=== PATIENT | male | born 1945 | race Caucasian/White ===

== ENCOUNTER 2018-01-01 13:35 | Observation (INO) | payer OTHER ==
[2018-01-01] MEDS ORDERED: ASPIRIN 81 MG CHEWABLE TAB PO ONE (13:50)
[2018-01-01] MEDS ORDERED: NS 500 ML IV ONE (13:50)
--- NOTE | 2018-01-01 13:50 | CPEKG ---
Heart Rate: 74 RR Interval: 811 P-R Interval: 156 QRSD Interval: 82 QT Interval: 388 QTC Interval: 431 P Glidden: 42 QRS Glidden: 63 T Wave Glidden: 16 EKG Severity - NORMAL ECG - EKG Impression: SINUS RHYTHM Electronically Signed By: Alex Cherry 01-Jan-2018 14:48:00
[2018-01-01 14:02] LABS: PLATELET COUNT 209 10^3/uL (150-400)
[2018-01-01 14:13] LABS: INR 1.09 (0.83-1.16); PROTIME(PATIENT) 14.3 SEC (12.0-15.0)
--- NOTE | 2018-01-01 14:14 | EDPHY ---
H & P Time Seen by Provider: 01/01/18 13:50 HPI/ROS: HPI Palpitations. 72-year-old male by private vehicle with his . This patient has a history of atrial fibrillation. He had ablation performed by Dr. Ruby in 2015 and 2012. The patient reports that he was exercising at the gym between 10:30 a.m. And 11:30 a.m.. He was doing a circuit training workout. He reports sudden onset of palpitations. He has an application on his iPad with 2 leads that he puts his fingers on, he did tracings while having these palpitations. They indicate a narrow complex sinus tachycardia with a rate of 150 as well as a regular wide complex tachycardia with a rate of 150 and irregular narrow complex tachycardia. He states the palpitations lasted for about 2 hr and resolved when he came to the emergency department. No associated chest pain. Denies any shortness of breath. States that during the palpitations he did try to continue his work out and felt lightheaded. He reports his volleyball player is Dr. Smiley Jacques. He has been on metoprolol but over the last week to 2 weeks he has been transitioned off of metoprolol and onto diltiazem under her direction. ROS: Constitutional: No fever, no chills. No weakness. Eyes: No discharge. No changes in vision. ENT: No sore throat. No nasal congestion or rhinorrhea. Respiratory: No cough. No shortness of breath. Cardiac: No chest pain, as above. Gastrointestinal: No abdominal pain, no vomiting, no diarrhea. Genitourinary: No hematuria. No dysuria or increased frequency with urination. Musculoskeletal: No back pain. No neck pain. No myalgias or arthralgias. Skin: No rashes. Neurological: No headache. No focal weakness or altered sensation. Past medical history: Atrial fibrillation with history of ablation x2. As above. Social history: Nonsmoker. Here with his . Social alcohol. Physical Exam: General Appearance: Alert, no distress. This patient is responding to questions appropriately and in full sentences. This patient appears well- hydrated and well-nourished. Eyes: Pupils equal and round no pallor or injection. No lid edema, erythema or injection. Respiratory: There are no retractions, lungs are clear to auscultation with good air movement bilaterally. Cardiovascular: Regular rate and rhythm. No murmur. Gastrointestinal: Abdomen is soft and nontender, no masses, bowel sounds normal. No focal tenderness at McBurney's point. No Lundberg sign. Neurological: Motor sensory function is grossly intact. Cranial nerves are normal. Gait is normal. Skin: Warm and dry, no rashes. Musculoskeletal: Neck is supple and nontender. Extremities are symmetrical. All joints range without pain or impingement. Psychiatric: No agitation. No depression. Database: EKG: EKG time is 1:48 p.m.; EKG shows a narrow complex normal sinus rhythm with a ventricular rate of 74. The FL, QRS, QT intervals are within normal limits. There are no ST-T wave changes indicative of ischemic or injury pattern. No evidence of right heart strain. No evidence of WPW, Brugada syndrome, hypertrophic cardiomyopathy. Interpreted by me. Imaging: Chest x-ray AP portable; the cardiac mediastinal silhouette is unremarkable. No evidence of infiltrate or pneumothorax. No acute cardiopulmonary disease process noted. Interpreted by me. Procedures: Emergency department course: IV placed. He was placed on a monitor. Vital signs reviewed and are normal. On my initial evaluation, heart rate 76, normal sinus rhythm narrow complex on the monitor. Borderline febrile. Vital signs otherwise unremarkable. EKG obtained and reviewed by myself. 2:50 p.m., patient re-evaluated. Resting comfortably at this time. He remains asymptomatic. He has a narrow complex sinus rhythm on the monitor with ventricular rate of 68. Blood pressure is normal. I discussed the results of his emergency department workup with him and his . I discussed admitting him to telemetry for further observation and management as well as cardiology consultation. He endorses this plan. 2:55 p.m., spoke with on-call hospitalist. Case discussed in detail with him. He accepts the patient for admission. 3:00 p.m., spoke with on-call volleyball player, Dr. Brock Aguero. Case discussed with him. He or 1 of his partners will consult on this patient in the morning. The patient's remaining emergency department has been uneventful. He was admitted to telemetry in stable and improved condition. Differential Diagnosis: The differential diagnosis on this patient includes but is not limited to atrial fibrillation, atrial flutter, other SVT, ventricular tachycardia. This represents a partial list of diagnoses considered. These considerations are based on history, physical exam, past history, reassessment and diagnostic testing. Smoking Status: Former smoker Constitutional: Initial Vital Signs Temperature (C) 36.7 C 01/01/18 13:43 Heart Rate 81 01/01/18 13:43 Respiratory Rate 18 01/01/18 13:43 Blood Pressure 119/76 01/01/18 13:43 O2 Sat (%) 95 01/01/18 13:43 O2 Delivery Mode Room Air Allergies/Adverse Reactions: coffee Allergy (Uncoded 05/25/13 08:41) Other-Enter Comments kobi Allergy (Uncoded 05/25/13 08:41) Home Medications: Medication Instructions Recorded Albuterol [Proventil Inhaler HFA 1 - 2 puffs PO Q4 PRN 02/23/16 (*)] Apixaban [Eliquis] 5 mg PO BID 02/23/16 Atorvastatin Calcium [Lipitor 40 40 mg PO HS 01/01/18 mg (*)] Beclomethasone Qvar 80 [Qvar 80 2 inh IH BID 01/01/18 Redihaler (*)] Diltiazem HCl [Diltiazem ER] 120 mg PO DAILY 01/01/18 Glucosamine Sulfate [Glucosamine 500 mg PO DAILY 01/01/18 Sulfate 500 MG (*)] Herbals/Supplements -Info Only 1 ea PO DAILY 01/01/18 Multivitamins [Multivitamin (*)] 1 each PO DAILY 01/01/18 Medical Decision Making - Diagnostics Imaging Results: Imaging Impressions Chest X-Ray 01/01/18 13:51 Impression: Negative frontal chest radiograph. - Data Points Laboratory Results: Laboratory Results 01/01/18 13:55 01/01/18 13:55 01/01/18 01/01/18 01/01/18 13:55 13:55 13:55 WBC RBC Hgb Hct MCV MCH MCHC RDW Plt Count MPV Neut % (Auto) Lymph % (Auto) [place] % (Auto) Eos % (Auto) Baso % (Auto) Nucleat RBC Rel Count Absolute Neuts (auto) Absolute Lymphs (auto) Absolute Monos (auto) Absolute Eos (auto) Absolute Basos (auto) Absolute Nucleated RBC Immature Gran % Immature Gran # PT 14.3 SEC SEC (12.0-15.0) INR 1.09 (0.83-1.16) APTT 26.3 SEC SEC (23.0-38.0) Sodium 145 mEq/L mEq/L (135-145) Potassium 4.4 mEq/L mEq/L (3.5-5.2) Chloride 104 mEq/L mEq/L (97-110) Carbon Dioxide 28 mEq/l mEq/l (22-31) Anion Gap 13 mEq/L mEq/L (8-16) BUN 22 mg/dL mg/dL (7-23) Creatinine 1.2 mg/dL mg/dL (0.7-1.3) Estimated GFR 59 Glucose 110 mg/dL H mg/dL (70-100) Calcium 9.3 mg/dL mg/dL (8.5-10.4) Troponin I < 0.012 ng/mL ng/mL (0.000-0.034) TSH 1.540 uIU/mL uIU/mL (0.465-4.680) 01/01/18 13:55 WBC 10.71 10^3/uL H 10^3/uL (3.80-9.50) RBC 5.04 10^6/uL 10^6/uL (4.40-6.38) Hgb 16.0 g/dL g/dL (13.7-17.5) Hct 47.0 % % (40.0-51.0) MCV 93.3 fL fL (81.5-99.8) MCH 31.7 pg pg (27.9-34.1) MCHC 34.0 g/dL g/dL (32.4-36.7) RDW 12.6 % % (11.5-15.2) Plt Count 209 10^3/uL 10^3/uL (150-400) MPV 9.7 fL fL (8.7-11.7) Neut % (Auto) 69.3 % % (39.3-74.2) Lymph % (Auto) 22.6 % % (15.0-45.0) [place] % (Auto) 6.6 % % (4.5-13.0) Eos % (Auto) 0.6 % % (0.6-7.6) Baso % (Auto) 0.5 % % (0.3-1.7) Nucleat RBC Rel Count 0.0 % % (0.0-0.2) Absolute Neuts (auto) 7.43 10^3/uL H 10^3/uL (1.70-6.50) Absolute Lymphs (auto) 2.42 10^3/uL 10^3/uL (1.00-3.00) Absolute Monos (auto) 0.71 10^3/uL 10^3/uL (0.30-0.80) Absolute Eos (auto) 0.06 10^3/uL 10^3/uL (0.03-0.40) Absolute Basos (auto) 0.05 10^3/uL 10^3/uL (0.02-0.10) Absolute Nucleated RBC 0.00 10^3/uL 10^3/uL (0-0.01) Immature Gran % 0.4 % % (0.0-1.1) Immature Gran # 0.04 10^3/uL 10^3/uL (0.00-0.10) PT INR APTT Sodium Potassium Chloride Carbon Dioxide Anion Gap BUN Creatinine Estimated GFR Glucose Calcium Troponin I TSH Medications Given: Discontinued Medications Aspirin (Aspirin) 324 mg PO EDNOW ONE Stop: 01/01/18 13:51 Last Admin: 01/01/18 13:58 Dose: Not Given Sodium Chloride (Ns) 500 mls @ 1,000 mls/hr IV EDNOW ONE PRN Reason: Protocol Stop: 01/01/18 14:19 Last Admin: 01/01/18 13:59 Dose: Not Given Departure - Departure Disposition: [facility] Acute Clinical Impression: Palpitations, Arrhythmia
[2018-01-01] MEDS ORDERED: NS 1,000 ML IV SCH (15:00)
[2018-01-01] MEDS ORDERED: ONDANSETRON DISINTEGRATING 4 MG TAB PO PRN (15:00)
[2018-01-01] MEDS ORDERED: ONDANSETRON 4 MG/2 ML VIAL IVP PRN (15:00)
[2018-01-01] MEDS ORDERED: ACETAMINOPHEN 325 MG TAB PO PRN (15:00)
--- NOTE | 2018-01-01 16:01 | ASMTCMCOM ---
CM Note CM Note Notes: Pt presented to the Emergency Department with complaints of palpitations during a workout today. History includes afib with two prior ablations (2012, 2015). His military analyst is Dr. Smilye Jacques with [facility]. Pt is and lives with his . Pt is to be admitted for further evaluation and treatment. Discharge needs remain unclear at this time. CM will continue to follow. Current Discharge Plan: To be determined Date Signed: 01/01/2018 04:01 PM Electronically Signed By:Cathy Dueñas RN
[2018-01-01] MEDS ORDERED: ALBUTEROL 60 PUFFS/8 GM MDI IH PRN (17:24)
--- NOTE | 2018-01-01 17:28 | PDGENHP ---
History and Physical - Chief Complaint Acute palpitation - History of Present Illness Primary care provider: Dr. Pisano Primary fire boss: Dr. Smiley Jacques, Dr. Ganga Ruby HPI: 72-year-old male presenting with acute palpitations characterized as a noticeably irregular heart rhythm with associated lightheadedness, with onset of symptoms between 10:30 and 11:30 a.m. On the day of presentation, while engaging in circuit training. Duration of symptoms was approximately 2 hr, and they were alleviated with rest as well as the patient administering an additional diltiazem 60 mg immediate release. The symptoms occurred in the context of the patient experiencing what he perceived as an irregular heart rhythm on the day prior to this presentation but he did not experience any rapid heart rate at that time. He was otherwise feeling well, with no other symptoms, and on the day prior to this presentation he had tapered his metoprolol tartrate 12.5 mg once daily, and then initiated the diltiazem 120 mg continuous release on the morning of this presentation. He subsequently engaged in cardiovascular circuit training at approximately 10:30 a.m. And during his workout, the patient began experiencing palpitations with rapid heart rate. He initially attempted to rest and check his heart rhythm on his iPad. His heart rhythm on his iPad demonstrated a heart rate of around 150 with what appeared to be atrial fibrillation as well as some wide complex tachycardia, possibly ventricular tachycardia. He attempted to reinitiate his work out, and then experienced significant lightheadedness, and had to stop. He denies overt chest pain throughout the day. History Information - Allergies/Home Medication List Allergies/Adverse Reactions: coffee Allergy (Uncoded 05/25/13 08:41) Other-Enter Comments kobi Allergy (Uncoded 05/25/13 08:41) Home Medications: Albuterol [Proventil Inhaler HFA (*)] 1 - 2 puffs PO Q4 PRN 02/23/16 [Last Taken Unknown] Apixaban [Eliquis] 5 mg PO BID 02/23/16 [Last Taken 01/01/18 09:00] Atorvastatin Calcium [Lipitor 40 mg (*)] 40 mg PO HS 01/01/18 [Last Taken ] Beclomethasone Qvar 80 [Qvar 80 Redihaler (*)] 2 inh IH BID 01/01/18 [Last Taken Unknown] Diltiazem HCl [Diltiazem ER] 120 mg PO DAILY 01/01/18 [Last Taken 01/01/18] Glucosamine Sulfate [Glucosamine Sulfate 500 MG (*)] 500 mg PO DAILY 01/01/18 [ Last Taken 01/01/18] Herbals/Supplements -Info Only 1 ea PO DAILY 01/01/18 [Last Taken Unknown] Multivitamins [Multivitamin (*)] 1 each PO DAILY 01/01/18 [Last Taken 01/01/18] I have personally reviewed and updated: family history, medical history, social history, surgical history - Past Medical History Additional medical history: Atrial flutter and paroxysmal atrial fibrillation status post ablation in 2012 in 2016. Obstructive sleep apnea on CPAP. Hyperlipidemia - Surgical History Additional surgical history: Bilateral inguinal hernia repair. Testicular torsion with orchiectomy. Ablation in 2012 in 2016 - Family History Additional family history: recently a with viral illness, no family history of coronary artery disease - Social History Smoking Status: Former smoker Alcohol Use: Occasionally (No significant use recently) Drug Use: None Additional social history: Patient continues to travel for work, he is planning to leave town in 3 days Review of Systems Review of Systems: ROS: 10pt was reviewed & negative except for what was stated in HPI & below Constitutional: Reports: weakness Cardiac: Reports: irregular heart rate, lightheadedness, palpitations Physical Exam Physical Exam: Temp Pulse Resp BP Pulse Ox 36.8 C 64 16 110/75 93 01/01/18 16:29 01/01/18 16:29 01/01/18 16:29 01/01/18 16:29 01/01/18 16:29 Constitutional: no apparent distress, appears nourished, not in pain Eyes: PERRL, anicteric sclera, EOMI Ears, Nose, Mouth, Throat: moist mucous membranes, hearing normal, ears appear normal, no oral mucosal ulcers Cardiovascular: regular rate and rhythym, no murmur, rub, or gallop, No edema Respiratory: no respiratory distress, no rales or rhonchi, clear to auscultation Gastrointestinal: normoactive bowel sounds, soft, non-tender abdomen, no palpable masses Skin: warm, No rash Neurologic: AAOx3, sensation intact bilaterally, No weakness (Motor strength 5/ 5 bilateral lower extremity), No facial droop Psychiatric: interacting appropriately, not anxious, not encephalopathic, thought process linear Lab Data & Imaging Review 01/01/18 13:55 01/01/18 13:55 WBC 10.71 10^3/uL (3.80-9.50) H 01/01/18 13:55 RBC 5.04 10^6/uL (4.40-6.38) 01/01/18 13:55 Hgb 16.0 g/dL (13.7-17.5) 01/01/18 13:55 Hct 47.0 % (40.0-51.0) 01/01/18 13:55 MCV 93.3 fL (81.5-99.8) 01/01/18 13:55 MCH 31.7 pg (27.9-34.1) 01/01/18 13:55 MCHC 34.0 g/dL (32.4-36.7) 01/01/18 13:55 RDW 12.6 % (11.5-15.2) 01/01/18 13:55 Plt Count 209 10^3/uL (150-400) 01/01/18 13:55 MPV 9.7 fL (8.7-11.7) 01/01/18 13:55 Neut % (Auto) 69.3 % (39.3-74.2) 01/01/18 13:55 Lymph % (Auto) 22.6 % (15.0-45.0) 01/01/18 13:55 [place] % (Auto) 6.6 % (4.5-13.0) 01/01/18 13:55 Eos % (Auto) 0.6 % (0.6-7.6) 01/01/18 13:55 Baso % (Auto) 0.5 % (0.3-1.7) 01/01/18 13:55 Nucleat RBC Rel Count 0.0 % (0.0-0.2) 01/01/18 13:55 Absolute Neuts (auto) 7.43 10^3/uL (1.70-6.50) H 01/01/18 13:55 Absolute Lymphs (auto) 2.42 10^3/uL (1.00-3.00) 01/01/18 13:55 Absolute Monos (auto) 0.71 10^3/uL (0.30-0.80) 01/01/18 13:55 Absolute Eos (auto) 0.06 10^3/uL (0.03-0.40) 01/01/18 13:55 Absolute Basos (auto) 0.05 10^3/uL (0.02-0.10) 01/01/18 13:55 Absolute Nucleated RBC 0.00 10^3/uL (0-0.01) 01/01/18 13:55 Immature Gran % 0.4 % (0.0-1.1) 01/01/18 13:55 Immature Gran # 0.04 10^3/uL (0.00-0.10) 01/01/18 13:55 PT 14.3 SEC (12.0-15.0) 01/01/18 13:55 INR 1.09 (0.83-1.16) 01/01/18 13:55 APTT 26.3 SEC (23.0-38.0) 01/01/18 13:55 Sodium 145 mEq/L (135-145) 01/01/18 13:55 Potassium 4.4 mEq/L (3.5-5.2) 01/01/18 13:55 Chloride 104 mEq/L (97-110) 01/01/18 13:55 Carbon Dioxide 28 mEq/l (22-31) 01/01/18 13:55 Anion Gap 13 mEq/L (8-16) 01/01/18 13:55 BUN 22 mg/dL (7-23) 01/01/18 13:55 Creatinine 1.2 mg/dL (0.7-1.3) 01/01/18 13:55 Estimated GFR 59 01/01/18 13:55 Glucose 110 mg/dL (70-100) H 01/01/18 13:55 Calcium 9.3 mg/dL (8.5-10.4) 01/01/18 13:55 Troponin I < 0.012 ng/mL (0.000-0.034) 01/01/18 13:55 TSH 1.540 uIU/mL (0.465-4.680) 01/01/18 13:55 Visualized and Interpreted Chest x-ray results: Yes Chest X-Ray results: other (Clear without infiltrate) Visualized and Interpreted imaging results: Yes Interpretation: Review of patient's eye pad rhythm tracings demonstrates what appears to be atrial fibrillation with PVCs, occurring during his workout, as well as wide complex tachycardia which may be monomorphic VT Visualized and Interpreted EKG results: Yes EKG Interpretation: Positive for: other (Current EKG demonstrates a normal sinus mechanism without any significant ST changes) Assessment & Plan Assessment: 72-year-old male presenting with acute palpitations and lightheadedness in the setting of recurrent rapid atrial fibrillation and possibly ventricular arrhythmia as well Plan: 1. Palpitations and lightheadedness. Acute, new problem this provider, further workup indicated. Review of the patient's eye pad rhythm tracing, which should be noted is based on technology involving him placing 2 fingers on his iPad and interpreting a cardiac tracing, demonstrates atrial fibrillation and PVCs as well as what may be monomorphic V-tach corresponding with his timing of symptoms -given this level of uncertainty whether his symptoms are driven by an atrial arrhythmia versus ventricular one, I have recommended that the patient remain on cardiac monitoring overnight and receive an urgent cardiology evaluation to help determine the next steps and evaluation, whether it be Holter monitor, EP study, stress test, and the patient wishes for this to be expedited given that he is planning on leaving town in 3 days and is unclear how safely expeditiously these subsequent test could be performed in the outpatient setting -will repeat cardiac enzymes 6 hr after presentation, given the immediate presentation after his symptoms -continue IV fluids given his marginally elevated creatinine level and recent physical exertion 2. Paroxysmal atrial fibrillation and history of atrial flutter. Monitor on telemetry as above, continue on diltiazem 120 once daily, continue on Eliquis -reviewed outside records including 02/24/2016 discharge summary by Jeromy Hicks, relates the patient's most recent hospitalization for atrial rhythm ablation with ejection fraction 65-70%, mild mitral regurgitation, status post unsuccessful antiarrhythmic management, and the patient experiencing palpitations and fatigue as his primary symptoms with his atrial arrhythmia Diet. Regular Prophylaxis. High risk patient, currently on Eliquis Code. Full Disposition. Anticipated discharge is 01/02, pending stabilization and further workup of conditions outlined above. I have discussed patient's presentation with Dr. Lizbeth Murphy, we agree the patient warrants urgent workup and Dr. Murphy has conveyed to me that he will call and discuss with Cardiology from the emergency department, and request a consultation for tomorrow a.m..
[2018-01-01] MEDS: BECLOMETHASONE QVAR 80 REDIHALER 120 INH/10.6 GM MDI IH SCH (21:02)
[2018-01-01] MEDS: ATORVASTATIN CALCIUM 40 MG TAB PO SCH (21:33)
[2018-01-01] MEDS: APIXABAN 5 MG TAB PO SCH (21:33)
[2018-01-02 04:50] LABS: PLATELET COUNT 190 10^3/uL (150-400)
[2018-01-02] MEDS: GLUCOSAMINE SULF 500 MG CAP PO SCH (08:42)
[2018-01-02] MEDS: MULTIVITAMINS 1 EACH TAB PO SCH (08:42)
[2018-01-02] MEDS ORDERED: Herbals/Supplements -Info Only PO SCH (09:00)
[2018-01-02] MEDS ORDERED: DILTIAZEM CD 120 MG CAP PO SCH (09:00)
[2018-01-02] MEDS: BECLOMETHASONE QVAR 80 REDIHALER 120 INH/10.6 GM MDI IH SCH ×2 (09:20→20:50)
[2018-01-02] MEDS: APIXABAN 5 MG TAB PO SCH ×2 (11:02→20:35)
--- NOTE | 2018-01-02 11:44 | CPEKG ---
Heart Rate: 62 RR Interval: 968 P-R Interval: 168 QRSD Interval: 84 QT Interval: 468 QTC Interval: 476 P Keo: 40 QRS Keo: 58 T Wave Keo: -8 EKG Severity - BORDERLINE ECG - EKG Impression: SINUS RHYTHM EKG Impression: BORDERLINE T ABNORMALITIES, INFERIOR LEADS EKG Impression: BORDERLINE PROLONGED QT INTERVAL Electronically Signed By: Brock Aguero 02-Jan-2018 12:30:04
--- NOTE | 2018-01-02 14:12 | PDCARCONS ---
Cardiology Consult Reason for Consult: Irregular heart rhythm with associated lightheadedness. Chief Complaint: Palpitations and lightheadedness. Requesting Physician: Hospitalist service/Miryam MUIR History of Present Illness: Geronimo is a 72-year-old male with a history of intermittent wide complex tachycardia, paroxysmal atrial fibrillation s/p two ablations (11/2012 and 02/2016 ). Geronimo was unsuccessful with antiarrhythmic management in the past and therefore required a second ablation 03/05/16. His CHADS-VASc score is 2 on the basis of age and hypertension. Geronimo presented with acute palpitations characterized by a noticeably irregular heart rhythm with associated lightheadedness that developed during circuit training. He had experienced an irregular rhythm on the day prior to this presentation without rapid heart rate. On the day prior to his presentation he had tapered his Metoprolol Tartrate 12.5 mg once daily, and then initiated the Diltiazem 120 mg continuous release. While admitted, the patient's troponin was trending up. His most recent troponin was 0.078 ng/mL. Geronimo is currently asymptomatic from a cardiac standpoint. He denies cardiac symptoms including chest pain, pressure or tightness. He has also not experienced syncope, near syncope, shortness of breath, nausea vomiting or lightheadedness in the past 72 hours. History Information - Allergies/Home Medication List Allergies/Adverse Reactions: coffee Allergy (Uncoded 05/25/13 08:41) Other-Enter Comments kobi Allergy (Uncoded 05/25/13 08:41) Home Medications: Albuterol [Proventil Inhaler HFA (*)] 1 - 2 puffs PO Q4 PRN 02/23/16 [Last Taken Unknown] Apixaban [Eliquis] 5 mg PO BID 02/23/16 [Last Taken 01/01/18 09:00] Atorvastatin Calcium [Lipitor 40 mg (*)] 40 mg PO HS 01/01/18 [Last Taken ] Beclomethasone Qvar 80 [Qvar 80 Redihaler (*)] 2 inh IH BID 01/01/18 [Last Taken Unknown] Diltiazem HCl [Diltiazem ER] 120 mg PO DAILY 01/01/18 [Last Taken 01/01/18] Glucosamine Sulfate [Glucosamine Sulfate 500 MG (*)] 500 mg PO DAILY 01/01/18 [ Last Taken 01/01/18] Herbals/Supplements -Info Only 1 ea PO DAILY 01/01/18 [Last Taken Unknown] Multivitamins [Multivitamin (*)] 1 each PO DAILY 01/01/18 [Last Taken 01/01/18] I have personally reviewed and updated: family history, medical history, social history, surgical history Past Medical History: - Past Medical History atrial fibrillation, coronary artery disease Additional medical history: The patient has a history of cough, asthma and wheezing, which is why he was being taken off beta rosa m. - Surgical History Reports: ablation Additional surgical history: Most recent cath was 07/2016 under the care of Dr. Witt. No flow limiting disease was identified. - Family History Additional family history: COPD/emphysema in his father. Mother lived to - Social History Smoking Status: Former smoker Alcohol Use: Occasionally (No significant use recently) Drug Use: None Cardiac History - Cardiac History Past Cardiac History: CAD, ABLATION Activities at Onset: other (circuit training) Associated Symptoms: other (lightheadedness, palpitations) JOSE Risk Evaluation age greater or equal to 65: yes greater or equal to 3 CAD risk factors: no (Patient is low risk especially in light of recent negative cath in July 2016 and no active symptoms to suggest ischemia. (Cathed after a treadmill revealed multiple salvos of nonsustained wide complex tachycardia.) known CAD(stenosis greater or eqaul to 50%): no ASA use in past 7 days: no severe angina(greater or equal to 2 episodes in 24hrs): no EKG ST changes greater or equal to 0.5mm: no positive cardiac marker: yes Total Score: 2 JOSE Score: 8.3% risk Age in Years: 65-74 Sex: Male Congestive Heart Failure History: No Hypertension History: No Stroke/TIA/Thromboembolism History: No Vascular Disease History: Yes Diabetes Mellitus: No [id number] Score: 2 Physical Exam Physical Exam: Temp Pulse Resp BP Pulse Ox 36.7 C 62 18 123/79 H 93 01/02/18 11:31 01/02/18 11:31 01/02/18 11:31 01/02/18 11:31 01/02/18 11:31 Constitutional: no apparent distress Eyes: PERRL Ears, Nose, Mouth, Throat: moist mucous membranes, hearing normal Cardiovascular: regular rate and rhythym, no murmur, rub, or gallop Respiratory: no respiratory distress, no rales or rhonchi, clear to auscultation Gastrointestinal: normoactive bowel sounds, soft, non-tender abdomen, No rebound , No distension Skin: warm, normal color Musculoskeletal: full muscle strength Neurologic: AAOx3, No weakness Psychiatric: interacting appropriately, not anxious, thought process linear, No agitated, No poor insight, No poor judgement Lab and Imaging 01/02/18 03:52 01/02/18 03:52 WBC 9.84 10^3/uL (3.80-9.50) H 01/02/18 03:52 RBC 4.28 10^6/uL (4.40-6.38) L 01/02/18 03:52 Hgb 13.7 g/dL (13.7-17.5) 01/02/18 03:52 Hct 40.1 % (40.0-51.0) 01/02/18 03:52 MCV 93.7 fL (81.5-99.8) 01/02/18 03:52 MCH 32.0 pg (27.9-34.1) 01/02/18 03:52 MCHC 34.2 g/dL (32.4-36.7) 01/02/18 03:52 RDW 12.8 % (11.5-15.2) 01/02/18 03:52 Plt Count 190 10^3/uL (150-400) 01/02/18 03:52 MPV 10.2 fL (8.7-11.7) 01/02/18 03:52 Neut % (Auto) 51.9 % (39.3-74.2) 01/02/18 03:52 Lymph % (Auto) 35.8 % (15.0-45.0) 01/02/18 03:52 Giles % (Auto) 9.6 % (4.5-13.0) 01/02/18 03:52 Eos % (Auto) 2.0 % (0.6-7.6) 01/02/18 03:52 Baso % (Auto) 0.5 % (0.3-1.7) 01/02/18 03:52 Nucleat RBC Rel Count 0.0 % (0.0-0.2) 01/02/18 03:52 Absolute Neuts (auto) 5.11 10^3/uL (1.70-6.50) 01/02/18 03:52 Absolute Lymphs (auto) 3.52 10^3/uL (1.00-3.00) H 01/02/18 03:52 Absolute Monos (auto) 0.94 10^3/uL (0.30-0.80) H 01/02/18 03:52 Absolute Eos (auto) 0.20 10^3/uL (0.03-0.40) 01/02/18 03:52 Absolute Basos (auto) 0.05 10^3/uL (0.02-0.10) 01/02/18 03:52 Absolute Nucleated RBC 0.00 10^3/uL (0-0.01) 01/02/18 03:52 Immature Gran % 0.2 % (0.0-1.1) 01/02/18 03:52 Immature Gran # 0.02 10^3/uL (0.00-0.10) 01/02/18 03:52 PT 14.3 SEC (12.0-15.0) 01/01/18 13:55 INR 1.09 (0.83-1.16) 01/01/18 13:55 APTT 26.3 SEC (23.0-38.0) 01/01/18 13:55 Sodium 145 mEq/L (135-145) 01/02/18 03:52 Potassium 4.3 mEq/L (3.5-5.2) 01/02/18 03:52 Chloride 108 mEq/L (97-110) 01/02/18 03:52 Carbon Dioxide 28 mEq/l (22-31) 01/02/18 03:52 Anion Gap 9 mEq/L (8-16) 01/02/18 03:52 BUN 21 mg/dL (7-23) 01/02/18 03:52 Creatinine 1.1 mg/dL (0.7-1.3) 01/02/18 03:52 Estimated GFR > 60 01/02/18 03:52 Glucose 81 mg/dL (70-100) 01/02/18 03:52 Calcium 8.7 mg/dL (8.5-10.4) 04/23/18 03:52 Magnesium 2.2 mg/dL (1.6-2.3) 01/02/18 03:52 Troponin I 0.078 ng/mL (0.000-0.034) H 01/02/18 03:52 TSH 1.540 uIU/mL (0.465-4.680) 01/01/18 13:55 Visualized and Interpreted Chest x-ray results: No Visualized and Interpreted imaging results: Yes Interpretation: I looked at the raw data/images of the cardiac cath from 2015 and agree that there was non flow limiting CAD, without suspicious lesions. Visualized and Interpreted EKG results: Yes EKG Interpretation: Positive for: NS ST wave abnormalities, other (Normal sinus rhythm) Telemetry: I reviewed the raw data on the rhythm strips. The patient is having bouts of wide complex tachycardia that may represent atrial flutter or tach with aberrant conduction or ventricular tachycardia Nonsustained. He also has narrow complex tachycardia that is most likely left atrial flutter or tachycardia. Echocardiogram: He had an echocardiogram performed 02/24/16 post ablation. His EF was 65-70% and he had mild mitral regurgitation. There was trace TR present. His left ventricle was normal in size and function. Today the echo was unchanged please see the full report under separate cover. (I read the echo myself.) A/P Assessment: I have reviewed the raw data on the rhythm strips. His [employer] recordings were reviewed as well and shows he has atrial flutter which is probably left atrial in origin often with 2:1 conduction. There are also bouts of nonsustained wide complex tachycardia, which may be atrial in origin with associated aberrancy ( atypical LBBB morphology) versus nonsustained ventricular tachycardia that appear to be LV in origin. Geronimo had a stress test 07/19/16 and collapsed while exercising. I reviewed the EKG recordings from the study which showed possible VT vs atrial tachycardia with aberrancy. The patient then underwent a heart catheterization 07/28/16 that showed no flow limiting obstruction. I do not recommend further cardiac testing at this time given that the patient has non- flow limiting coronary disease. I believe his rhythm changes are secondary to recent medication changes (from Metoprolol to Diltiazem). I discussed at length with the patient the possibility of antiarrhythmic therapy. The patient tells me that antiarrhythmic management has been unsuccessful in the past with Rythmol and Propranolol. According to Geronimo's most recent blood work, his creatinine is 1.25, Sotalol would therefore have to be used with caution. I consulted Dr. Ruby and discussed restarting the patient on beta blockers with continued telemetry monitoring. The patient wishes for this to be expedited given that he is planning on leaving town in 3 days. I think it is safe for the patient to restart Metoprolol 25 mg and use his [employer] device to continue to monitor his heart rhythm. This patient may benefit from an implantable loop recorder given his clinical symptoms and the fact that he is frequently travelling and away from home. I spent over 1 hour with the patient and his , Dr. Ruby, telemetry nurse, and staff.
--- NOTE | 2018-01-02 14:18 | ASMTCMCOM ---
CM Note CM Note Notes: 01/02/2018 Case Management Note Met w/pt during rounds this morning. There are no OT or PT evals ordered at this time. Pt ambulates in room without difficulty. Case Management d/c poc: anticipating home independent with follow up as directed. Case Management to follow. Date Signed: 01/02/2018 02:18 PM Electronically Signed By:Luli Hoyos RN
--- NOTE | 2018-01-02 17:03 | PDCARPN ---
Cardiology Progress Note Chief Complaint: Palpitations Assessment/Plan: Assessment: 1. Atrial flutter 2. Atrial fibrillation 3. Borderline troponin elevation Plan: I have reviewed his tracings on his iPad. These are consistent with a regular tachycardia, rates between 150 to 173 beats per minute. This is consistent with a left atrial tachycardia. Intermittently this is wide complex consistent with atrial tachycardia with aberrancy. He did have a 6 beat episode of ventricular tachycardia on his telemetry monitoring today. Patient had ablation for atrial flutter in 2012 and atrial fibrillation in 2016. He has not had atrial flutter since his ablation procedure in 2012. He has done very well since his ablation procedure in 2016 until the current recurrence. This is temporarily related with changing his medications from beta -blockers to calcium channel blockers, however this may continue after we put him back on beta-blockers. Resume metoprolol at 25 mg twice daily, later can switch to metoprolol succinate 50 mg a day. Discontinue diltiazem. If he does not respond to resumption of beta-rosa m therapy, he will be scheduled for an ablation procedure. Continue Eliquis. 01/02/18 17:03 Subjective: Patient was weaning of his beta-rosa m and transitioning to diltiazem. Medication change was made because of significant bronchitis when he saw my partner Dr. Smiley Jacques few weeks back. He developed palpitations, documented these on his [employer] device and presented to the hospital because of ongoing palpitations. Currently feels well, offers no complaints. Denies chest pain. Had lightheadedness but no syncope. Reviewed/Discussed With: multidisciplinary team Time Spent With Patient: 30 min Objective: Vital Signs (8 Hrs) Temp Pulse Resp BP Pulse Ox 01/02/18 15:48 36.7 C 70 18 132/80 H 93 01/02/18 11:31 36.7 C 62 18 123/79 H 93 Intake/Output (24 Hrs) 01/01/18 01/02/18 01/03/18 11:59 11:59 11:59 Intake Total 1350 Balance 1350 Intake: Oral (ml) 1350 Other: Weight 69.853 kg Intake Quantity Yes Sufficient Number of Voids Toilet 3 Result Diagrams: 01/02/18 03:52 01/02/18 03:52 Cardiac Labs: Cardiac Lab Results (72 Hrs) 01/02/18 01/01/18 03:52 19:41 Troponin I 0.078 H 0.069 H EKG: Sinus rhythm Telemetry: Sinus rhythm - Physical Exam Eyes: PERRL, EOMI Ears, Nose, Mouth, Throat: moist mucous membranes Cardiovascular: regular rate and rhythm ICD10 Worksheet Patient Problems: Problems Problem Status Onset Atrial fibrillation and flutter Active Palpitations Acute Arrhythmia Acute
--- NOTE | 2018-01-02 17:08 | HOSPPROG ---
Hospitalist Progress Note Assessment/Plan: #Tachycardia: -Dr. Oconnell and Dr. Ruby evaluated. Will restart Metoprolol 25mg BID, stop Diltiazem -plan for left atrial ablation #h/o flutter/fib: plan as above. h/o ablation 2012 & 2016. Cont Eliquis #Indeterminate troponin: due to tachycardia #JOCELYN: CPAP #Diet: regular #Disp: warrants inpatient admission for telemetry with initiation of beta- rosa m Subjective: no CP or SOB this morning Objective: Vital Signs Temp Pulse Resp BP Pulse Ox 36.7 C 70 18 132/80 H 93 01/02/18 15:48 01/02/18 15:48 01/02/18 15:48 01/02/18 15:48 01/02/18 15:48 Laboratory Results 01/02/18 03:52 01/02/18 03:52 01/01/18 01/02/18 01/03/18 05:59 05:59 05:59 Intake Total 650 700 Balance 650 700 PT 14.3 SEC (12.0-15.0) 01/01/18 13:55 INR 1.09 (0.83-1.16) 01/01/18 13:55 - Time Spent With Patient Time Spent with Patient: greater than 35 minutes Time Spent with Patient: Greater than 35 minutes spent on this patients care, greater than 50% of time spent counseling, educating, and coordinating care regarding the above mentioned plan. - Physical Exam Constitutional: no apparent distress Eyes: PERRL Ears, Nose, Mouth, Throat: moist mucous membranes Cardiovascular: bradycardia Respiratory: no respiratory distress Gastrointestinal: normoactive bowel sounds Genitourinary: no bladder fullness Skin: warm Musculoskeletal: full muscle strength Neurologic: AAOx3, CN II-XII Intact Psychiatric: interacting appropriately ICD10 Worksheet Patient Problems: Problems Problem Status Onset Atrial fibrillation and flutter Active Arrhythmia Acute Palpitations Acute
[2018-01-02] MEDS: METOPROLOL TARTRATE 25 MG TAB PO SCH (20:35)
[2018-01-02] MEDS: ATORVASTATIN CALCIUM 40 MG TAB PO SCH (20:35)
[2018-01-02] MEDS ORDERED: METOPROLOL TARTRATE 25 MG TAB PO SCH (21:00)
[2018-01-03] MEDS: GLUCOSAMINE SULF 500 MG CAP PO SCH (09:39)
[2018-01-03] MEDS: MULTIVITAMINS 1 EACH TAB PO SCH (09:39)
[2018-01-03] MEDS: BECLOMETHASONE QVAR 80 REDIHALER 120 INH/10.6 GM MDI IH SCH (09:39)
[2018-01-03] MEDS: METOPROLOL TARTRATE 25 MG TAB PO SCH (09:45)
[2018-01-03] MEDS: APIXABAN 5 MG TAB PO SCH (09:45)
[2018-01-03 09:48] VITALS: BP 140/80
--- NOTE | 2018-01-03 10:39 | GDS ---
[f rep st] DISCHARGE SUMMARY DISCHARGE DIAGNOSES: 1. Tachycardia, atrial flutter, atrial fibrillation. 2. Indeterminate troponin. HISTORY OF PRESENT ILLNESS: A 72-year-old male with history of atrial fibrillation and flutter, status post prior ablation in 2012 and 2016, presenting with tachycardia. Has been weaning off his metoprolol this week to transition to diltiazem. Took first dose of Diltiazem day of admission. He was working out at gym and felt heart racing and used his heart rhythm on his iPad that demonstrated a heart rate of 150s and appeared to be in atrial fibrillation. He developed significant lightheadedness and had to stop his exercise. He denies any chest pain. HOSPITAL COURSE BY PROBLEM: 1. Left atrial tachycardia: evaluated by Dr. Ruby. Heart rates between 150- 170s. Did have 6 beats of VT while here in the hospital. Magnesium/potassium at goal. Resume metoprolol 25mg BID. Stop diltiazem. If not responsive, will need ablation. 2. Indeterminate troponin. Denies any chest pain. This is secondary to tachyarrhythmia. DISPOSITION: Patient is stable for discharge. NEW MEDICATIONS: 1. Metoprolol 25 mg daily. 2. Stop diltiazem. FOLLOWUP: 1. Dr. Jacques. 2. Dr. Ruby if ablation warranted. PHYSICAL EXAMINATION: VITAL SIGNS: Today, temperature 36.9, blood pressure 134 /79, heart rate 57 to 70, respirations 16, 91% on room air. GENERAL: Well appearing, sitting in bed, working on his computer. No acute distress. HEENT: PERRLA. EOMI. Oropharynx clear. CV: Regular rate and rhythm and rhythm. No murmurs, gallops, or rubs. LUNGS: Clear. ABDOMEN: Soft, nontender, nondistended. Positive bowel sounds. : No Maldonado. MUSCULOSKELETAL: 5/5 upper and lower extremity strength. NEUROLOGIC: 2 through 12 intact. PSYCH: Alert and oriented x3. /[id number]/MODL MTDD
--- NOTE | 2018-01-03 13:38 | ASDISCHSUM ---
Discharge Information Plan Status:Home with No Needs Medically Cleared to Leave:01/03/2018 Discharge Date:01/03/2018 11:23 AM CM D/C Disposition:Home, Routine, Self-Care ADT D/C Disposition:Home, Routine, Self-Care Projected Discharge Date:01/03/2018 11:23 AM Transportation at D/C: Discharge Delay Reason: Follow-Up Date:01/03/2018 11:23 AM Discharge Slot: Final Diagnosis: Placement Information Patient Contact Information Contact Name:CHARLOTTE Relationship: Address:[address] [place] [address] City:[place] Alternate Phone: State/Zip Code:[place] [address] Email: Financial Information Financial Class:[employer] Primary Plan Desc:JUNAID Yovani [facility] Primary Plan Number:[id number] Secondary Plan Desc: Secondary Plan Number: Assessment Information LACE LACE Length of stay for Answers: 1 day current admission Acuity / Level of Answers: No Care: Did the patient have an inpatient admission? Comorbidities - select Answers: Other Notes: Afib w/ two prior all that apply ablations # of Emergency department Answers: 1-2 visits in the last 6 months Score: 3 Date Signed: 01/03/2018 01:37 PM Electronically Signed By:Luli Hoyos RN [facility] CM Progress Note CM Note CM Note Notes: Pt presented to the Emergency Department with complaints of palpitations during a workout today. History includes afib with two prior ablations (2012, 2015). His pipe line walker is Dr. Smiley Jacques with [employer]. Pt is and lives with his . Pt is to be admitted for further evaluation and treatment. Discharge needs remain unclear at this time. CM will continue to follow. Current Discharge Plan: To be determined Date Signed: 01/01/2018 04:01 PM Electronically Signed By:Cathy Dueñas RN [facility] CM Progress Note CM Note CM Note Notes: 01/02/2018 Case Management Note Met w/pt during rounds this morning. There are no OT or PT evals ordered at this time. Pt ambulates in room without difficulty. Case Management d/c poc: anticipating home independent with follow up as directed. Case Management to follow. Date Signed: 01/02/2018 02:18 PM Electronically Signed By:Luli Hoyos RN Intervention Information Intervention Type:*ARCHER-Signed Date of Service:01/02/2018 09:38 AM Patient Type:Observation Staff Member:Shyla Wright Hours: Discipline: Severity: Comment:
== END 2018-01-03 11:23 | disposition home or self-care (01) ==
LOC: F2W 16:22
PROVIDERS: ADMIT Internal Medicine; ATTEND Internal Medicine
DX: R00.0 Tachycardia, unspecified (principal); I48.92 Unspecified atrial flutter; I48.91 Unspecified atrial fibrillation; R79.89 Other specified abnormal findings of blood chemistry; Z87.891 Personal history of nicotine dependence
CPT/HCPCS: 71045; 93005; 99285; G0378